=== PATIENT | male | born 1950 | race Two or more races ===

== ENCOUNTER 2019-01-31 10:47 | Day surgery (SDC) | payer MEDICARE ==
[~2019-01-31 10:47] MED LIST: FENTANYL CITRATE INJ/PF 100 MCG/2 ML AMPUL ONE; KETOROLAC TROMETHAMINE 0.45% 4 DROP/0.4 ML DROPERETTE OS PRN; MIDAZOLAM 2 MG/2 ML INJ ONE; ONDANSETRON HCL INJ/PF 4 MG/2 ML SDV ONE
[2019-01-31] MEDS: TROPICAMIDE 1% OPH SOLN 15 ML OS PRN ×3 (11:15→11:35)
[2019-01-31] MEDS: BESIFLOXACIN HCL 0.6% OPH SUSP 5 ML BOTTLE OS PRN ×4 (11:15→12:10)
[2019-01-31] MEDS: CYCLOPENTOLATE 0.2%/PHENYLEPHRINE 1% OPH SOLN 2 ML OS PRN ×3 (11:15→11:35)
[2019-01-31] MEDS: TETRACAINE HCL 0.5% OPH SOLN 4 ML OS PRN ×4 (11:16→11:46)
[2019-01-31] MEDS: LIDOCAINE 1% INJ-PF (10 MG/ML) 30 ML SDV ONE ×2 (11:59)
[2019-01-31] MEDS: EPINEPHRINE INJ/PF 1 MG/1 ML AMPULE ONE ×2 (11:59)
[2019-01-31] MEDS: CHONDR SU A NA/HYALUR INTRAOC KIT (SURGICARE) ONE ×2 (11:59)
[2019-01-31] MEDS: TOBRAMYCIN SULFATE/DEXAMETH OPH OINTMENT 3.5 GM ONE ×2 (12:10)
[2019-01-31] MEDS: DORZOLAMIDE HCL 2%/TIMOLOL MALEAT 0.5% OPH SOLN 10 ML OS PRN ×2 (12:10)
== END 2019-01-31 13:24 | disposition home or self-care (01) ==
LOC: SC 10:47
PROVIDERS: ATTEND Ophthalmology
DX: H25.12 Age-related nuclear cataract, left eye (principal); Z79.82 Long term (current) use of aspirin; Z79.899 Other long term (current) drug therapy; Z87.891 Personal history of nicotine dependence; I10 Essential (primary) hypertension
CPT/HCPCS: 66984; V2632; J2250; J3490 ×3; A9270 ×2; J0171; J3010; J2405; 142

== ENCOUNTER 2019-02-12 09:10 | Day surgery (SDC) | payer MEDICARE ==
[~2019-02-12 09:10] MED LIST changes: -FENTANYL CITRATE INJ/PF 100 MCG/2 ML AMPUL ONE; +KETOROLAC TROMETHAMINE 0.45% 4 DROP/0.4 ML DROPERETTE OD PRN; -KETOROLAC TROMETHAMINE 0.45% 4 DROP/0.4 ML DROPERETTE OS PRN; -MIDAZOLAM 2 MG/2 ML INJ ONE; -ONDANSETRON HCL INJ/PF 4 MG/2 ML SDV ONE
[2019-02-12] MEDS ORDERED: ONDANSETRON HCL INJ/PF 4 MG/2 ML SDV ONE (09:59)
[2019-02-12] MEDS ORDERED: FENTANYL CITRATE INJ/PF 100 MCG/2 ML AMPUL ONE (09:59)
[2019-02-12] MEDS ORDERED: MIDAZOLAM 2 MG/2 ML INJ ONE (09:59)
[2019-02-12] MEDS: CYCLOPENTOLATE 0.2%/PHENYLEPHRINE 1% OPH SOLN 2 ML OD PRN ×3 (10:21→10:41)
[2019-02-12] MEDS: BESIFLOXACIN HCL 0.6% OPH SUSP 5 ML BOTTLE OD PRN ×4 (10:21→11:16)
[2019-02-12] MEDS: TROPICAMIDE 1% OPH SOLN 15 ML OD PRN ×3 (10:21→10:41)
[2019-02-12] MEDS: TETRACAINE HCL 0.5% OPH SOLN 4 ML OD PRN ×4 (10:22→10:58)
[2019-02-12] MEDS: CHONDR SU A NA/HYALUR INTRAOC KIT (SURGICARE) ONE ×2 (11:06)
[2019-02-12] MEDS: LIDOCAINE 1%/PHENYLEPHRINE 1.5% 1 ML VIAL ONE ×2 (11:06)
[2019-02-12] MEDS: EPINEPHRINE INJ/PF 1 MG/1 ML AMPULE ONE ×2 (11:06)
[2019-02-12] MEDS: DORZOLAMIDE HCL 2%/TIMOLOL MALEAT 0.5% OPH SOLN 10 ML OD PRN ×2 (11:16)
== END 2019-02-12 12:00 | disposition home or self-care (01) ==
LOC: SC 09:10
PROVIDERS: ATTEND Ophthalmology
DX: H25.11 Age-related nuclear cataract, right eye (principal); Z98.42 Cataract extraction status, left eye; I10 Essential (primary) hypertension; G47.33 Obstructive sleep apnea (adult) (pediatric); Z79.82 Long term (current) use of aspirin; Z79.899 Other long term (current) drug therapy; Z87.891 Personal history of nicotine dependence
CPT/HCPCS: 00142; 66984; V2632; J2250; J3490 ×2; A9270; J0171; J3010; J2405; J2370; 142